=== PATIENT | female | born 1945 | race Caucasian/White ===

== ENCOUNTER 2018-09-23 00:56 | Inpatient (IN) | payer MEDICARE, OTHER | END 2018-09-24 15:15 | disposition home or self-care (01) | LOC: ER 00:56 → PCU 3S 02:13 | PROC: 4A023N7 Measurement of Cardiac Sampling and Pressure, Left Heart, Percutaneous Approach (ICD-10-PCS; principal; ~2018-09-23) | PROC: 027034Z Dilation of Coronary Artery, One Artery with Drug-eluting Intraluminal Device, Percutaneous Approach (ICD-10-PCS; ~2018-09-23) | PROC: B211YZZ Fluoroscopy of Multiple Coronary Arteries using Other Contrast (ICD-10-PCS; ~2018-09-23) | PROC: B215YZZ Fluoroscopy of Left Heart using Other Contrast (ICD-10-PCS; ~2018-09-23) | DX: I21.4 Non-ST elevation (NSTEMI) myocardial infarction (principal) ==